=== PATIENT | female | born 1995 | race American Indian/Alaskan Native ===

== ENCOUNTER 2016-06-18 22:15 | Emergency (ER) | payer SELFPAY ==
[2016-06-19 02:16] LABS: Basophils % (Auto) 0.2 % (0.0-1.8); Eosinophils % (Auto) 1.2 % (0.0-4.3); Hematocrit 41.9 % (30.3-42.9); Hemoglobin 13.8 gm/dl (10.1-14.3); Mean Corpuscular HGB Conc 33 % (30-34); Mean Corpuscular Hemoglobin 26 pg (28-32); Mean Corpuscular Volume 79 fl (79-97); Platelet Count 220 K/mm3 (140-440); Red Blood Count 5.28 M/mm3 (3.65-5.03); Red Cell Distribution Width 14.2 % (13.2-15.2); White Blood Count 10.2 K/mm3 (4.5-11.0)
[2016-06-19 02:42] LABS: Alanine Aminotransferase 26 units/L (7-56); Albumin 4.1 g/dL (3.9-5); Alkaline Phosphatase 125 units/L (35-129); Anion Gap 21 mmol/L; Bilirubin,Total 0.4 mg/dL (0.1-1.2); Blood Urea Nitrogen 7 mg/dL (7-17); Calcium 9.4 mg/dL (8.4-10.2); Carbon Dioxide 21 mmol/L (22-30); Chloride 98.3 mmol/L (98-107); Glucose 94 mg/dL (65-100); Lipase 42 units/L (13-60); Sodium 136 mmol/L (137-145); Total Protein 8.3 g/dL (6.3-8.2)
[2016-06-19 03:42] LABS: Bilirubin,Urine NEG (Negative); Blood,Urine NEG (Negative); Ketones,Urine 80 mg/dL (Negative); Leukocyte Esterase,Urine SM (Negative); Mucus,Urine 2+ /HPF; Nitrite,Urine NEG (Negative); Urobilinogen,Urine < 2.0 mg/dL (<2.0)
[2016-06-19] MEDS ORDERED: TYLENOL PO ONE (05:29)
[2016-06-19] MEDS ORDERED: NACL 0.9% 1000 ML 1,000 ML IV ONE (05:35)
[2016-06-19] MEDS ORDERED: ZOFRAN ONE (05:37)
--- NOTE | 2016-06-19 05:38 | Emergency Department Report ---
HPI - General Chief Complaint: Upper Respiratory Infection Time Seen by Provider: 06/19/16 05:27 - HPI HPI: Patient here reported upper respiratory symptoms versus cold, congestion and sore throat drooling or difficulty swallowing. Denies any shortness of breath at present she did report shortness of breath in triage area but she said she is not short of breath at present. She said she has some chest pain when she coughs to the front of her chest and also reported nausea without any vomiting. She reports that she had some palpitation. Denies any abdominal pain. Asked menstrual period was 06/10/2016. Reports nasal congestion and drainage with facial pain. She reports that she's been having nasal congestion over couple weeks and she's been using [id number] medication but is not helping but now she is having chills and fever. Denies any urinary burning frequency or urgency. Denies any back pain, vaginal bleeding or discharge. ED Past Medical Hx - Past Medical History Previous Medical History?: Yes Hx Hypertension: No Hx Congestive Heart Failure: No Hx Diabetes: No Hx Deep Vein Thrombosis: No Hx Renal Disease: No Hx Sickle Cell Disease: No Hx Seizures: No Hx Asthma: No Hx COPD: No Hx HIV: No Additional medical history: heart murmur - Surgical History Past Surgical History?: Yes - Family History Family history: hypertension - Social History Smoking Status: Never Smoker Substance Use Type: None - Medications Home Medications: Home Medications Medication Instructions Recorded Confirmed Last Taken Type Vit#96/Ferrous Fum/FA 1 tab PO DAILY 06/08/13 07/10/13 07/10/13 10:00 History [ Tablet] 1 tab Ibuprofen [Motrin 600 MG tab] 600 mg PO Q6H PRN #30 tablet 07/13/13 Unknown Rx Labetalol [Normodyne TAB] 200 mg PO BID #60 tablet 07/13/13 Unknown Rx Acetaminophen/Codeine [Tylenol #3] 1 tab PO Q6H PRN #20 tab 01/14/15 Unknown Rx HYDROcodone/APAP 5-325 [[place] 1 each PO Q6HR PRN #20 tablet 02/02/15 Unknown Rx 5/325] Ibuprofen [Motrin] 800 mg PO Q8HR PRN #60 tablet 02/02/15 Unknown Rx Azithromycin [Zithromax Z-HELDER] 250 mg PO DAILY #6 tab 03/17/17 Unknown Rx guaiFENesin [Mucinex] 600 mg PO Q12H #10 tab.er.12h 06/19/16 Unknown Rx ED Review of Systems ROS: Stated complaint: CHEST HURTS/N/V SOB/SORE THROAT Other details as noted in HPI Comment: All other systems reviewed and negative Constitutional: chills, fever ENT: throat pain, congestion. denies: ear pain Respiratory: stridor, other (patient reports shortness of breath in triage. She denies any shortness of breath to me.). denies: cough, shortness of breath , SOB with exertion, SOB at rest, wheezing Cardiovascular: chest pain (patient was having chest pain with coughing but she said now she is fine. She is nauseous), palpitations. denies: edema, syncope Gastrointestinal: nausea. denies: abdominal pain, vomiting, diarrhea Genitourinary: denies: urgency, frequency, hematuria, discharge Musculoskeletal: denies: back pain, arthralgia Skin: denies: rash Neurological: denies: headache, weakness, numbness, paresthesias, confusion, abnormal gait, vertigo Physical Exam - Physical Exam Vital Signs: Vital Signs 06/19/16 01:30 Temperature 99.5 F Pulse Rate 99 H Respiratory 20 Rate Blood Pressure 122/84 [Right] O2 Sat by Pulse 100 Oximetry Vital Signs 06/19/16 06/19/16 01:30 05:57 Temperature 99.5 F Pulse Rate 99 H Respiratory 20 18 Rate Blood Pressure 122/84 [Right] O2 Sat by Pulse 100 Oximetry Vital Signs 06/19/16 06/19/16 06/19/16 01:30 05:57 07:20 Temperature 99.5 F Pulse Rate 99 H 91 H Respiratory 20 18 18 Rate Blood Pressure 122/84 115/72 [Right] O2 Sat by Pulse 100 99 Oximetry Vital Signs 06/19/16 06/19/16 06/19/16 01:30 05:57 07:20 Temperature 99.5 F Pulse Rate 99 H 91 H Respiratory 20 18 18 Rate Blood Pressure 122/84 115/72 [Right] O2 Sat by Pulse 100 99 Oximetry 06/19/16 07:22 Temperature 98.5 F Pulse Rate Respiratory Rate Blood Pressure [Right] O2 Sat by Pulse Oximetry General: This is a 20-year-old female well-nourished well-developed and nontoxic in appearance. Physical Exam: Head: Normocephalic atraumatic Mouth: Moist, no pharyngeal exudate or erythema. Uvula is midline and oral airway is patent. No facial swelling. No peritonsillar abscesses. Nose: Congested with erythema to mucosa. Clear Drainage. Maxillary sinuses tender to palpate Neck: Supple, no C-spine tenderness, no tracheal deviation. Nontender to palpate. no adenopathy Ears: Bilateral TMs congested without erythema. Bilateral EAC without any redness swelling or drainage. Abdomen: Soft, nontender to palpate in all quadrants, normal bowel sounds in all quadrant and negative CVA tenderness bilaterally. Eyes: Bilateral pupils equal and reactive to light, bilateral EOM intact. Bilateral sclera and conjunctiva without injection. Normal accommodation. No nystagmus Lungs: Clear to auscultate bilaterally no rhonchi wheezes or rales. Normal work of breathing extremity; No CCE. +2 pulses. No neurovascular compromise Cardiovascular: S1-S2, patient tachycardic at 111 on EKG. regular rhythm. No murmurs. Skin: clean Dry and intact no rash no lesions Psych: Normal mood and behavior ED Course Vital Signs 06/19/16 01:30 Temperature 99.5 F Pulse Rate 99 H Respiratory 20 Rate Blood Pressure 122/84 [Right] O2 Sat by Pulse 100 Oximetry Vital Signs 06/19/16 06/19/16 06/19/16 01:30 05:57 07:20 Temperature 99.5 F Pulse Rate 99 H 91 H Respiratory 20 18 18 Rate Blood Pressure 122/84 115/72 [Right] O2 Sat by Pulse 100 99 Oximetry Vital Signs 06/19/16 06/19/16 06/19/16 01:30 05:57 07:20 Temperature 99.5 F Pulse Rate 99 H 91 H Respiratory 20 18 18 Rate Blood Pressure 122/84 115/72 [Right] O2 Sat by Pulse 100 99 Oximetry 06/19/16 07:22 Temperature 98.5 F Pulse Rate Respiratory Rate Blood Pressure [Right] O2 Sat by Pulse Oximetry - Reevaluation(s) Reevaluation #1: 06/19/16 07:16 Patient given Tylenol 500 mg by mouth, Zofran 4 mg IV and 1 L of IV fluid because she was found to be but incidentally and she had ketones in her urine would suggest dehydration. Patient is not a diabetic. Reevaluation #2: 06/19/16 07:22 Patient vital signs stable after IV fluid and Tylenol. SHe felt better. ED Medical Decision Making - Lab Data Result diagrams: 06/19/16 01:50 06/19/16 01:50 Lab Results 06/19/16 06/19/16 06/19/16 Range/Units 01:50 01:50 01:50 WBC 10.2 (4.5-11.0) K/mm3 RBC 5.28 H (3.65-5.03) M/mm3 Hgb 13.8 (10.1-14.3) gm/dl Hct 41.9 (30.3-42.9) % MCV 79 (79-97) fl MCH 26 L (28-32) pg MCHC 33 (30-34) % RDW 14.2 (13.2-15.2) % Plt Count 220 (140-440) K/mm3 Lymph % (Auto) 4.6 L (13.4-35.0) % [place] % (Auto) 6.4 (0.0-7.3) % Eos % (Auto) 1.2 (0.0-4.3) % Baso % (Auto) 0.2 (0.0-1.8) % Lymph # 0.5 L (1.2-5.4) K/mm3 Dickinson # 0.7 (0.0-0.8) K/mm3 Eos # 0.1 (0.0-0.4) K/mm3 Baso # 0.0 (0.0-0.1) K/mm3 Seg Neutrophils % 87.6 H (40.0-70.0) % Seg Neutrophils # 8.9 H (1.8-7.7) K/mm3 Carbon Dioxide 21 L (22-30) mmol/L BUN 7 (7-17) mg/dL Creatinine 0.5 L (0.7-1.2) mg/dL Estimated GFR > 60 ml/min BUN/Creatinine Ratio 14.00 % Glucose 94 (65-100) mg/dL Calcium 9.4 (8.4-10.2) mg/dL Total Bilirubin 0.4 (0.1-1.2) mg/dL AST 33 (5-40) units/L ALT 26 (7-56) units/L Alkaline Phosphatase 125 (35-129) units/L Troponin T < 0.010 (0.00-0.029) ng/mL Total Protein 8.3 H (6.3-8.2) g/dL Albumin 4.1 (3.9-5) g/dL Albumin/Globulin Ratio 1.0 % Lipase 42 (13-60) units/L HCG, Qual Positive (Negative) Urine Color (Yellow) Urine Turbidity (Clear) Urine pH (5.0-7.0) Ur Specific [place] (1.003-1.030) Urine Protein (Negative) mg/dL Urine Glucose (UA) (Negative) mg/dL Urine Ketones (Negative) mg/dL Urine Blood (Negative) Urine Nitrite (Negative) Urine Bilirubin (Negative) Urine Urobilinogen (<2.0) mg/dL Ur Leukocyte Esterase (Negative) Urine WBC (Auto) (0.0-6.0) /HPF Urine RBC (Auto) (0.0-6.0) /HPF U Epithel Cells (Auto) (0-13.0) /HPF Urine Mucus /HPF 06/19/16 06/19/16 Range/Units 04:53 Unknown WBC (4.5-11.0) K/mm3 RBC (3.65-5.03) M/mm3 Hgb (10.1-14.3) gm/dl Hct (30.3-42.9) % MCV (79-97) fl MCH (28-32) pg MCHC (30-34) % RDW (13.2-15.2) % Plt Count (140-440) K/mm3 Lymph % (Auto) (13.4-35.0) % Dickinson % (Auto) (0.0-7.3) % Eos % (Auto) (0.0-4.3) % Baso % (Auto) (0.0-1.8) % Lymph # (1.2-5.4) K/mm3 Dickinson # (0.0-0.8) K/mm3 Eos # (0.0-0.4) K/mm3 Baso # (0.0-0.1) K/mm3 Seg Neutrophils % (40.0-70.0) % Seg Neutrophils # (1.8-7.7) K/mm3 Carbon Dioxide (22-30) mmol/L BUN (7-17) mg/dL Creatinine (0.7-1.2) mg/dL Estimated GFR ml/min BUN/Creatinine Ratio % Glucose (65-100) mg/dL Calcium (8.4-10.2) mg/dL Total Bilirubin (0.1-1.2) mg/dL AST (5-40) units/L ALT (7-56) units/L Alkaline Phosphatase (35-129) units/L Troponin T < 0.010 (0.00-0.029) ng/mL Total Protein (6.3-8.2) g/dL Albumin (3.9-5) g/dL Albumin/Globulin Ratio % Lipase (13-60) units/L HCG, Qual (Negative) Urine Color Yellow (Yellow) Urine Turbidity Clear (Clear) Urine pH 5.0 (5.0-7.0) Ur Specific [place] 1.030 (1.003-1.030) Urine Protein 30 mg/dl (Negative) mg/dL Urine Glucose (UA) Neg (Negative) mg/dL Urine Ketones 80 (Negative) mg/dL Urine Blood Neg (Negative) Urine Nitrite Neg (Negative) Urine Bilirubin Neg (Negative) Urine Urobilinogen < 2.0 (<2.0) mg/dL Ur Leukocyte Esterase Sm (Negative) Urine WBC (Auto) 5.0 (0.0-6.0) /HPF Urine RBC (Auto) 11.0 (0.0-6.0) /HPF U Epithel Cells (Auto) 7.0 (0-13.0) /HPF Urine Mucus 2+ /HPF - EKG Data -: EKG Interpreted by Me (Serotoff) Rate: tachycardia - EKG Data Interpretation: no acute changes, normal EKG - Medical Decision Making ED course: Patient given 1 L of normal saline in emergency room due to fever and tachycardia. Her vital signs are stable at present. She was given Tylenol 500 mg and Zofran 4 mg. Patient denies any nausea at present. The patient that incidental finding on labs show that she is and she seemed to be very surprised. I instructed her that she has sinus infection and will be treated with Zithromax and Mucinex and she will need to follow up with [facility] which I'll refer her to for management of . She had normal abdominal exam without any vaginal bleeding or discharge. Patient chest pain and shortness of breath has resolved she says she was more congested in her nose. Critical care attestation.: If time is entered above; I have spent that time in minutes in the direct care of this critically ill patient, excluding procedure time. ED Disposition Clinical Impression: Nausea alone, Atypical chest pain Acute sinusitis Qualifiers: Sinusitis location: unspecified location Recurrence: not specified as recurrent Qualified Code(s): J01.90 - Acute sinusitis, unspecified Qualifiers: Weeks of gestation: unspecified Qualified Code(s): Z33.1 - state, incidental Disposition: DISCHARGED TO HOME OR SELFCARE Is pt being admited?: No Does the pt Need Aspirin: No Condition: Stable Instructions: Chest Pain (ED), Sinusitis (ED), (ED) Additional Instructions: Please follow up with [facility] doctor as instructed any discharge instruction paperwork for management of new He can take Mucinex twice daily for 5 days for nasal congestion. Take Zithromax as instructed. Please increase her fluid intake to prevent from being dehydrated He can take Tylenol per dosing chart guideline if you develop fever. Prescriptions: Azithromycin [Zithromax Z-HELDER] 250 mg PO DAILY #6 tab guaiFENesin [Mucinex] 600 mg PO Q12H #10 tab.er.12h Referrals: SHAHZAD NEELY MD [Primary Care Provider] - 06/22/16 MARTINE LINDA MD [Staff Physician] - 2-3 Days Forms: Accompanied Note, Work/School Release Form(ED)
[2016-06-19] MEDS ORDERED: ZOFRAN IV ONE (05:40)
[2016-06-19 07:20] VITALS: BP 115/72
== END 2016-06-19 07:38 | disposition home or self-care (01) ==
LOC: ED 22:15
DX: J01.90 Acute sinusitis, unspecified (principal); R07.89 Other chest pain; R11.0 Nausea; Z33.1 Pregnant state, incidental
CPT/HCPCS: 36415; 80053; 81001; 83690; 84484; 84703; 85025; 87116; 87430; 93005; 93010; 96361; 96374; 99284; J2405; J7030

== ENCOUNTER 2016-09-25 00:12 | Emergency (ER) | payer MEDICAID ==
[2016-09-25 00:44] VITALS: BP 110/75
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
== END 2016-09-25 06:32 | disposition home or self-care (01) ==
LOC: ED 00:12
DX: S02.2XXA Fracture of nasal bones, initial encounter for closed fracture (principal); S00.83XA Contusion of other part of head, initial encounter; Y08.89XA Assault by other specified means, initial encounter; Y93.89 Activity, other specified; Y99.8 Other external cause status; Y92.89 Other specified places as the place of occurrence of the external cause
CPT/HCPCS: 70450; 70486; 81025

== ENCOUNTER 2021-01-07 07:47 | Emergency (ER) | payer MEDICAID ==
[2021-01-07 07:52] VITALS: BP 136/82
[2021-01-07] MEDS ORDERED: FLUORESCEIN 1 MG STRIP OP ONE (08:02)
[2021-01-07] MEDS ORDERED: TETRACAINE 0.5% OPHTH SOLN 4ML OU ONE (08:02)
[2021-01-07] MEDS ORDERED: ERYTHROMYCIN 5 MG/1 GM OPHTH OINT OU NR (08:03)
--- NOTE | 2021-01-07 08:03 | Emergency Department Report ---
ED Abdominal Pain HPI - General Chief Complaint: Abdominal Pain Stated Complaint: RT EYE PAIN RED/SWOLLEN/ABD PAIN Time Seen by Provider: 01/07/21 08:02 Source: patient Mode of arrival: Ambulatory Limitations: No Limitations - History of Present Illness Initial Comments: 25 yo comes to ER with 2 complaints 1. eye redness; no contacts; no trauma; no known contact; no recent uri 2. llq pain x 1 this AM- concerned she is . No n/v/d. abd exam wnl. no dysuria. no vag d/c. Pt ambulatory and non ill appearing on exam in triage MD Complaint: other -: Gradual Radiation: LLQ Severity: mild Consistency: intermittent, now resolved Improves With: nothing Worsens With: nothing Associated Symptoms: denies other symptoms - Related Data LMP (females 10-50): last week Previous Rx's Medication Instructions Recorded Last Taken Type Neomy/Polymyx B/Hc Opth Susp 1 drop OD Q6HR #1 bottle 01/07/21 Unknown Rx [Cortisporin (OPTH) Susp] Allergies Allergy/AdvReac Type Severity Reaction Status Date / Time No Known Allergies Allergy Verified 01/07/21 07:52 ED Review of Systems ROS: Stated complaint: RT EYE PAIN RED/SWOLLEN/ABD PAIN Other details as noted in HPI Comment: All other systems reviewed and negative ED Past Medical Hx - Past Medical History Previous Medical History?: Yes Hx Hypertension: No Hx Congestive Heart Failure: No Hx Diabetes: No Hx Deep Vein Thrombosis: No Hx Renal Disease: No Hx Sickle Cell Disease: No Hx Seizures: No Hx Asthma: No Hx COPD: No Hx HIV: No Additional medical history: heart murmur; htn with preg - Surgical History Past Surgical History?: Yes Additional Surgical History: nose - Family History Family history: no significant - Social History Smoking Status: Never Smoker - Medications Home Medications: Home Medications Medication Instructions Recorded Confirmed Last Taken Type Neomy/Polymyx B/Hc Opth Susp 1 drop OD Q6HR #1 bottle 01/07/21 Unknown Rx [Cortisporin (OPTH) Susp] ED Physical Exam - General Limitations: No Limitations General appearance: alert, in no apparent distress - Head Head exam: Present: atraumatic, normocephalic - Eye Eye exam: Present: normal appearance, PERRL, EOMI Pupils: Present: normal accommodation - Expanded Eye Exam Expanded Eyelids: Normal Inspection: Left Pupils: Regular, Round: Bilateral Sclera/Conjunctival: Normal Inspection: Bilateral Anterior chamber: Normal Inspection: Bilateral Posterior chamber: Deferred: Bilateral - ENT ENT exam: Present: mucous membranes moist - Neck Neck exam: Present: normal inspection - Respiratory Respiratory exam: Present: normal lung sounds bilaterally. Absent: respiratory distress - Cardiovascular Cardiovascular Exam: Present: regular rate, normal rhythm. Absent: systolic murmur, diastolic murmur, rubs, gallop - GI/Abdominal GI/Abdominal exam: Present: soft, normal bowel sounds - Extremities Exam Extremities exam: Present: normal inspection - Back Exam Back exam: Present: normal inspection - Neurological Exam Neurological exam: Present: alert, oriented X3 - Psychiatric Psychiatric exam: Present: normal affect, normal mood - Skin Skin exam: Present: warm, dry, intact, normal color. Absent: rash ED Course Vital Signs 01/07/21 07:50 Temperature 98.3 F Pulse Rate 60 Respiratory 18 Rate Blood Pressure 136/82 [Left] O2 Sat by Pulse 100 Oximetry ED Medical Decision Making - Medical Decision Making Vital Signs 01/07/21 07:50 Temperature 98.3 F Pulse Rate 60 Respiratory 18 Rate Blood Pressure 136/82 [Left] O2 Sat by Pulse 100 Oximetry Lab Results 01/07/21 Range/Units 10:02 Urine Color Yellow (Yellow) Urine Turbidity Clear (Clear) Urine pH 5.0 (5.0-7.0) Ur Specific [place] 1.023 (1.003-1.030) Urine Protein <15 mg/dl (Negative) mg/dL Urine Glucose (UA) Neg (Negative) mg/dL Urine Ketones Neg (Negative) mg/dL Urine Blood Neg (Negative) Urine Nitrite Neg (Negative) Ur Reducing Substances Not Reportable Urine Bilirubin Neg (Negative) Urine Ictotest Not Reportable Urine Urobilinogen 2.0 (<2.0) mg/dL Ur Leukocyte Esterase Tr (Negative) Urine WBC (Auto) 3.0 (0.0-6.0) /HPF Urine RBC (Auto) 1.0 (0.0-6.0) /HPF U Epithel Cells (Auto) 7.0 (0-13.0) /HPF Urine Mucus 3+ /HPF Urine HCG, Qual Negative (Negative) ua noted preg neg dc home with dc plan of care including rx and follow up. pt verbalizes understanding of plan of care. She is ambulatory, non ill appearing and taking po on dc - Differential Diagnosis ro uti/preg; ro conjunctivitis/iritis/fb Critical care attestation.: If time is entered above; I have spent that time in minutes in the direct care of this critically ill patient, excluding procedure time. ED Disposition Clinical Impression: Conjunctivitis Disposition: 01 HOME / SELF CARE / HOMELESS Is pt being admited?: No Condition: Stable Instructions: Abdominal Pain (ED) Additional Instructions: do not rub eye meds as ordered follow up with optha in 48 hours referral below follow up with pcp if pain returns referral below stay well hydrated diet as tolerated Prescriptions: Neomy/Polymyx B/Hc Opth Susp [Cortisporin (OPTH) Susp] 1 drop OD Q6HR #1 bottle Referrals: BELEN PIKE [Other] - 3-5 Days NEHAL SOUSA MD [Staff Physician] - 3-5 Days ADRIENNE BRADLEY MD [Staff Physician] - 3-5 Days Time of Disposition: 10:11
[2021-01-07 10:15] LABS: HCG Qualitative,Urine Negative (Negative)
[2021-01-07 10:18] LABS: Bilirubin,Urine NEG (Negative); Blood,Urine NEG (Negative); Color,Urine Yellow (Yellow); Mucus,Urine 3+ /HPF; Protein,Urine <15 mg/dL mg/dL (Negative)
== END 2021-01-07 10:56 | disposition home or self-care (01) ==
LOC: ED 07:47
DX: H10.9 Unspecified conjunctivitis (principal); Z98.890 Other specified postprocedural states
CPT/HCPCS: 81001; 81025; 99281; 99283